=== PATIENT | female | born 1985 | race Two or more races ===

== ENCOUNTER 2017-04-19 21:17 | Inpatient (IN) | payer OTHER ==
[~2017-04-19 21:17] MED LIST: FERRALET 90 TAB1 TAB PO; MOTRIN800 MG PO; PRENATAL1 EACH PO; VITAMIN D-1000 UNIT/ GT
[2017-04-19] MEDS ORDERED: FEROSUL325 M1 PO (22:19)
[2017-04-22] MEDS ORDERED: IBUPROFEN800 M1 PO (10:10)
== END 2017-04-22 13:10 | DRG 775 ==
LOC: LDR 21:17 → OBGD 04-20 15:24
PROVIDERS: ADMIT Advanced Practice Midwife
PROC: 10E0XZZ Delivery of Products of Conception, External Approach (ICD-10-PCS; principal; 2017-04-20)
PROC: 3E0P7GC Introduction of Other Therapeutic Substance into Female Reproductive, Via Natural or Artificial Opening (ICD-10-PCS; 2017-04-20)
DX: O69.1XX0 Labor and delivery complicated by cord around neck, with compression, not applicable or unspecified (principal); Z37.0 Single live birth; Z3A.39 39 weeks gestation of pregnancy
CPT/HCPCS: J2590